=== PATIENT | male | born 1940 | race Asian ===

== ENCOUNTER 2018-09-29 18:23 | Emergency (ER) | payer OTHER, MEDICAID ==
[~2018-09-29] VITALS: Ht 165.1 cm; Wt 91.0 kg
[2018-09-29 19:21] LABS: BASOPHILS % 0.7 % (0.0-2.0); EOSINOPHILS % 1.8 % (0.0-5.0); HEMATOCRIT. 43.6 % (42.0-52.0); HEMOGLOBIN. 14.7 g/dL (14.0-18.0); LYMPHOCYTES % 30.5 % (20.0-50.0); MEAN CORPUSCULAR HEMOGLOBIN 31.7 pg (28.0-32.0); MEAN CORPUSCULAR VOLUME 94.2 fL (80.0-94.0); MEAN PLATELET VOLUME 6.7 fl (7.4-10.4); MONOCYTES % 6.2 % (2.0-8.0); NEUTROPHILS % 60.8 % (40.0-76.0); PLATELET 198 x1000/uL (130-400); RED BLOOD CELL COUNT 4.63 mill/uL (4.7-6.1)
[2018-09-29 19:27] LABS: CHLORIDE 108 mEq/L (98-107)
[2018-09-29 19:40] LABS: INR 1.1; PARTIAL THROMBOPLASTIN TIME 28.2 sec (23.4-31.0); PROTHROMBIN TIME 10.8 sec (9.1-11.1)
[2018-09-29] MEDS ORDERED: VISCOUS LIDOCAINE 2% 15 ML UDC PO ONE (20:15)
[2018-09-29] MEDS ORDERED: LIDOCAINE HCL 2% 5ML SYRINGE IV ONE (20:30)
[2018-09-29] MEDS ORDERED: VISCOUS LIDOCAINE 2% 15 ML UDC PO NR (20:30)
[2018-09-29 21:50] VITALS: BP 130/86
== END 2018-09-29 21:50 | disposition home or self-care (01) ==
LOC: ER 18:23
DX: S61.213A Laceration without foreign body of left middle finger without damage to nail, initial encounter (principal); W25.XXXA Contact with sharp glass, initial encounter; Y93.89 Activity, other specified; Y92.89 Other specified places as the place of occurrence of the external cause; Y99.8 Other external cause status
CPT/HCPCS: 12001; 36415; 73130; 80048; 85025; 85610; 85730; 99284; J3490